=== PATIENT | male | born 1970 | race American Indian/Alaskan Native ===

== ENCOUNTER 2017-08-31 09:49 | Outpatient (CLI) | payer MEDICAID ==
[2017-08-31] MEDS ORDERED: XYLOCAINE TOPICAL 4% TP ONE ×2 (10:24→12:12)
== END 2017-08-31 09:50 | disposition home or self-care (01) ==
LOC: WOUND 09:49
PROVIDERS: ATTEND Surgery
DX: S91.109A Unspecified open wound of unspecified toe(s) without damage to nail, initial encounter (principal); X58.XXXA Exposure to other specified factors, initial encounter; Y93.89 Activity, other specified; Y92.89 Other specified places as the place of occurrence of the external cause; Y99.8 Other external cause status
CPT/HCPCS: 11042; G0463

== ENCOUNTER 2017-09-07 09:24 | Outpatient (CLI) | payer MEDICAID ==
[2017-09-07] MEDS ORDERED: XYLOCAINE TOPICAL 4% TP ONE ×2 (09:39→09:56)
== END 2017-09-07 09:25 | disposition home or self-care (01) ==
LOC: WOUND 09:24
PROVIDERS: ATTEND Surgery
DX: S91.105D Unspecified open wound of left lesser toe(s) without damage to nail, subsequent encounter (principal); X58.XXXD Exposure to other specified factors, subsequent encounter
CPT/HCPCS: 99212; G0463